=== PATIENT | female | born 1940 | race Caucasian/White ===

== ENCOUNTER 2019-04-09 01:06 | Emergency (ER) | payer OTHER, MEDICARE ==
[2019-04-09 01:13] VITALS: BP 145/76; PULSE 62; TEMP 98; BMI 21.4
[2019-04-09] MEDS ORDERED: morphine CARPU-JECT 4 MG/1 ML DISP.SYRIN IVPUSH ONE (01:27)
[2019-04-09] MEDS ORDERED: ONDANSETRON 4 MG/2 ML VIAL IVPB ONE (01:27)
[2019-04-09] MEDS ORDERED: SODIUM CHLORIDE 1,000 ML IV ONE (01:27)
--- NOTE | 2019-04-09 01:28 | PDOC ---
History of Present Illness - General Chief Complaint: Pain Stated Complaint: RIGHT FLANK PAIN Time Seen by Provider: 04/09/19 01:26 History Source: Patient Exam Limitations: No Limitations - History of Present Illness Initial Comments: 04/09/19 01:41 This is a 78-year-old female who comes in complaining of acute onset prior to arrival of right flank pain radiating to her right ear groin area. Patient had a similar episode approximately one month ago that resolved on its own. Patient said otherwise she denies any history of any stones. Patient said this episode was associated with nausea and vomiting. Patient here in the emergency room is very uncomfortable patient denies any fevers, chills, frequency or dysuria. Allergies: as per nursing notes Past Medical History: none Social history: Lives with family. No smoking. No alcohol. No illicit drugs. Surgical history: None General: No fevers or chills, no weakness, no weight loss HEENT: No change in vision. No sore throat,. No ear pain CardioVascular: no chest discomfort. No shortness of breath Respiratory:No cough, or wheezing. Gastrointestinal: no nausea, vomiting, diarrhea or constipation, No rectal bleeding Genitourinary: No dysuria, hematuria, or frequency Musculoskeletal: No joint or muscle pain or swelling Neurologic: No headache, vertigo, dizziness or loss of consciousness Psychiatric: nor depression Skin: No rashes or easy bruising Endocrine: no increased thirst or abnormal weight change Allergic: no skin or latex allergy All other systems reviewed and normal Exam: General: Well-nourished well-developed individual, no acute distress HEENT: Throat: Normal, tonsils normal, no erythema or exudate Neck: Supple, no meningeal signs, no lymphadenopathy Eyes::Pupils equal reactive and round, extraocular motion intact Chest: Nontender to palpation Cardiac: S1-S2 normal, regular rate and rhythm, no murmurs rubs or gallops Respiratory: Lungs clear to auscultation bilateral Abdomen: Soft, nondistended, normal bowel sounds, there is tenderness on palpation right lower quadrant no guarding or rebound Back/Flank: There is right CVA right flank tenderness on percussion and palpation Extremities: Warm, dry, no cyanosis, clubbing, or edema Skin: No rashes Neuro: Alert and oriented x3, CN II - XII intact, nonfocal exam with normal strength, normal sensation, normal reflexes, normal gait, Psych: Normal mood and affect Assessment and plan: This is 78-year-old female with right flank pain radiating to her right groin. The patient most likely has a kidney stone. Patient will be given morphine, IV fluids, Zofran and workup initiated including CBC, comp, CAT scan, UA 04/09/19 03:25 CAT scan does show a large 13 x 9 mm stone at the right UPJ. With some obstruction. Patient's renal function shows a creatinine of 0.7. Patient given prescriptions for Percocet and Zofran and told to stay well- hydrated and follow-up with a urologist on Thursday. Patient discharged home. Past History - Past Medical History Allergies/Adverse Reactions: Allergies Allergy/AdvReac Type Severity Reaction Status Date / Time No Known Allergies Allergy Verified 04/09/19 01:10 Home Medications: Ambulatory Orders Ondansetron [Zofran *Odt*] 4 mg SL QID PRN #21 od.tablet 04/09/19 Oxycodone HCl/Acetaminophen [Percocet 5-325 mg Tablet] 1 - 2 tab PO Q4H #20 tablet MDD 8 04/09/19 COPD: No Other medical history: Dystonia - Suicide/Smoking/Psychosocial Hx Smoking History: Never smoked Have you smoked in the past 12 months: No Information on smoking cessation initiated: No Hx Alcohol Use: No Drug/Substance Use Hx: No *Physical Exam - Vital Signs Last Vital Signs Temp Pulse Resp BP Pulse Ox 98.0 F 62 18 145/76 100 04/09/19 01:10 04/09/19 01:10 04/09/19 01:10 04/09/19 01:10 04/09/19 01:10 ED Treatment Course - LABORATORY CBC & Chemistry Diagram: 04/09/19 01:50 04/09/19 01:50 *DC/Admit/Observation/Transfer Diagnosis at time of Disposition: Renal colic on right side - Discharge Dispostion Disposition: HOME Decision to Admit order: No - Prescriptions Prescriptions: Oxycodone HCl/Acetaminophen [Percocet 5-325 mg Tablet] 1 - 2 tab PO Q4H #20 tablet MDD 8 - Referrals - Patient Instructions Printed Discharge Instructions: DI for Prescription Opioid Use Additional Instructions: For the pain take naproxen 1 tablet twice a day. In addition to the naproxen you can take Percocet one or 2 tablets every 4-6 hours as needed. For nausea take Zofran 1 tablet and that it dissolve under your tongue as often as every 6 hours Get an appointment with a urologist or as early next week as possible. Return to the emergency department immediately with ANY new, persistent or worsening symptoms. Continue any medications as previously prescribed by your physician. You should follow up with your primary doctor as soon as possible regarding today's emergency department visit. . Please make sure your doctor reviews the results of your emergency evaluation. Thank you for coming to the Emergency Department today for your care. It was a pleasure to see you today. Please note that your evaluation is INCOMPLETE until you follow-up with your doctor. . - Post Discharge Activity
[2019-04-09] MEDS ORDERED: ONDANSETRON 4 MG/2 ML VIAL ONE (01:41)
[2019-04-09] MEDS ORDERED: morphine SULFATE 4 MG/ML VIAL ONE ×3 (01:41)
[2019-04-09] MEDS ORDERED: KETOROLAC TROMETHAMINE 30 MG/1 ML VIAL IVPUSH ONE (01:55)
[2019-04-09] MEDS ORDERED: KETOROLAC TROMETHAMINE 30 MG/1 ML VIAL ONE (01:56)
[2019-04-09 02:29] LABS: BASO % 1.1 % (0-2.0); EOS % 3.5 % (0-4.5); HEMATOCRIT 40.8 % (32.4-45.2); HEMOGLOBIN 13.5 GM/dL (10.7-15.3); LYMPH % 14.1 % (8-40); MCH 31.6 pg (25.7-33.7); MCHC 33.1 g/dl (32.0-36.0); MEAN CELL VOLUME 95.5 fl (80-96); MEAN PLT VOLUME 9.6 fl (7.5-11.1); MONO % 7.3 % (3.8-10.2); PLATELET COUNT 331 K/MM3 (134-434); RBC 4.27 M/mm3 (3.60-5.2); RDW 13.8 % (11.6-15.6); WHITE BLOOD COUNT 10.8 K/mm3 (4.0-10.0)
[2019-04-09 03:06] LABS: ALBUMIN 4.1 g/dl (3.4-5.0); BILIRUBIN,TOTAL 0.5 mg/dL (0.2-1); CALCIUM 11.7 mg/dL (8.5-10.1); CREATININE 0.8 mg/dL (0.55-1.3); POTASSIUM 4.9 mmol/L (3.5-5.1); TOT PROT 8.2 g/dl (6.4-8.2)
[2019-04-09] MEDS ORDERED: ONDANSETRON 8 MG TABLET (FP) PO ONE (03:24)
[2019-04-09] MEDS ORDERED: ONDANSETRON 4 MG TABLET PO ONE (03:38)
== END 2019-04-09 03:52 | disposition home or self-care (01) ==
LOC: FER 01:06
PROC: 3E0333Z Introduction of Anti-inflammatory into Peripheral Vein, Percutaneous Approach (ICD-10-PCS; principal; 2019-04-09)
PROC: 3E033NZ Introduction of Analgesics, Hypnotics, Sedatives into Peripheral Vein, Percutaneous Approach (ICD-10-PCS; 2019-04-09)
PROC: 3E033GC Introduction of Other Therapeutic Substance into Peripheral Vein, Percutaneous Approach (ICD-10-PCS; 2019-04-09)
PROC: 3E0337Z Introduction of Electrolytic and Water Balance Substance into Peripheral Vein, Percutaneous Approach (ICD-10-PCS; 2019-04-09)
DX: N20.0 Calculus of kidney (principal)
CPT/HCPCS: 36415; 74176-TC; 80053; 85025; 99284-25; J7030

== ENCOUNTER 2019-04-13 20:12 | Emergency (ER) | payer OTHER, MEDICARE ==
[2019-04-13 20:17] VITALS: PULSE 74; TEMP 98.3; BMI 21.7
[2019-04-13 21:09] LABS: BASO % 0.9 % (0-2.0); HEMOGLOBIN 12.2 GM/dl (10.7-15.3); LYMPH % 15.2 % (8-40); MCH 32.5 pg (25.7-33.7); MCHC 33.8 g/dl (32.0-36.0); MEAN CELL VOLUME 96.2 fl (80-96); MEAN PLT VOLUME 8.7 fl (7.5-11.1); MONO % 9.4 % (3.8-10.2); NEUT % 68.5 % (42.8-82.8); PLATELET COUNT 259 K/MM3 (134-434); RBC 3.75 M/mm3 (3.60-5.2); RDW 13.1 % (11.6-15.6)
[2019-04-13 21:14] LABS: ALBUMIN 3.8 g/dl (3.4-5.0); BILIRUBIN,TOTAL 0.7 mg/dl (0.2-1); CALCIUM 9.7 mg/dl (8.5-10); CREATININE 0.7 mg/dl (0.55-1.3); POTASSIUM 4.1 mmol/L (3.5-5.1)
[2019-04-13] MEDS ORDERED: SODIUM CHLORIDE FOR INHALATION 3 ML VIAL.NEB IH ONE (21:51)
--- NOTE | 2019-04-13 22:08 | PDOC ---
Documentation entered by Malina Martines SCRIBE, acting as scribe for Ken Otero MD. Ken Otero MD: This documentation has been prepared by the Conrad brock Sammi, SCRIBE, under my direction and personally reviewed by me in its entirety. I confirm that the documentation accurately reflects all work, treatment, procedures, and medical decision making performed by me. History of Present Illness - General Chief Complaint: Blood Pressure Problem Stated Complaint: "MY PRESSURE IS HIGH" Time Seen by Provider: 04/13/19 20:13 - History of Present Illness Initial Comments: 04/13/19 20:53 The patient is a 78 year old female who presents to the emergency department for evaluation of swelling of her ankles and high blood pressure. The patient was seen here last week for a kidney stone, for which she was prescribed meloxicam and flomax. Pt states that since she started taking those medications , she has noticed that her blood pressure has been elevated, as high as 180 systolic, and she also has been experiencing swelling of both feet. She also endorses some chest "congestion" and cough that is worse with lying flat. She attributes it to post-nasal drip, which may be 2/2 allergies. Patient states when she woke up this morning her blood pressure was 182/110, so she took 20mg of her husbands lisinopril. Denies chest pain, shortness of breath, headache and dizziness. Denies fever, chills, nausea, vomiting, diarrhea and constipation. Denies dysuria, frequency, urgency and hematuria. Medical history: dystonia, prolapse mitral valve Allergies: codeine, sulfa Past History - Past Medical History Allergies/Adverse Reactions: Allergies Allergy/AdvReac Type Severity Reaction Status Date / Time Sulfa (Sulfonamide Allergy Verified 04/13/19 20:17 Antibiotics) Home Medications: Ambulatory Orders Levothyroxine Sodium [Synthroid] 1 mg PO DAILY 04/13/19 COPD: No - Suicide/Smoking/Psychosocial Hx Smoking History: Never smoked Have you smoked in the past 12 months: No Hx Alcohol Use: No Drug/Substance Use Hx: No Review of Systems - Review of Systems Comments:: 04/13/19 20:53 GENERAL/CONSTITUTIONAL: No fever or chills. No weakness. HEAD, EYES, EARS, NOSE AND THROAT: No change in vision. No ear pain or discharge. No sore throat. CARDIOVASCULAR:(+)high blood pressure. (+)chest congestion. no loss of consciousness RESPIRATORY: (+)cough. No wheezing, or hemoptysis. GASTROINTESTINAL: No nausea, vomiting, diarrhea or constipation. GENITOURINARY: No dysuria, frequency, or change in urination. MUSCULOSKELETAL: (+) ankle edema. No neck or back pain. SKIN: No rash NEUROLOGIC: No vertigo, no change in strength/sensation. *Physical Exam - Vital Signs Last Vital Signs Temp Pulse Resp BP Pulse Ox 98.3 F 74 14 143/84 99 04/13/19 20:15 04/13/19 20:15 04/13/19 20:15 04/13/19 21:46 04/13/19 20:15 - Physical Exam Comments: 04/13/19 22:04 "GENERAL: Awake, alert, and fully oriented, in no acute distress. HEAD: No signs of trauma EYES: PERRLA, EOMI, sclera anicteric, conjunctiva clear ENT: Auricles normal inspection, hearing grossly normal, nares patent, oropharynx clear without exudates. Moist mucosa NECK: Nontender, no stepoffs, Normal ROM, supple, no lymphadenopathy, JVD, or masses LUNGS: Breath sounds equal, clear to auscultation bilaterally. No wheezes, and no crackles HEART: Regular rate and rhythm, normal S1 and S2, no murmurs, rubs or gallops ABDOMEN: Soft, nontender, normoactive bowel sounds. No guarding, no rebound. No masses EXTREMITIES: +1 PE of both ankles, No clubbing or cyanosis. No cords, erythema, or tenderness NEUROLOGICAL: Cranial nerves II through XII intact. 5/5 strength and sensation in all extremities, Normal speech, normal gait, normal cerebellar function SKIN: Warm, Dry, normal turgor, no rashes or lesions noted. Heart Score/ECG Review - ECG Impressions Comment:: 04/13/19 22:05 NSR, no CHIOMA/STDs, T wave flattening in I and aVL, 1st degree AV block, rate 70 ED Treatment Course - LABORATORY CBC & Chemistry Diagram: 04/13/19 20:50 04/13/19 20:50 - ADDITIONAL ORDERS Additional order review: Laboratory Results 04/13/19 04/13/19 20:50 20:50 Sodium 139 Potassium 4.1 Chloride 104 Carbon Dioxide 28 Anion Gap 7 L BUN 18.0 Creatinine 0.7 Est GFR (CKD-EPI)AfAm 97.54 Est GFR (CKD-EPI)NonAf 84.16 Random Glucose 105 Calcium 9.7 Total Bilirubin 0.7 AST 20 ALT 20 Alkaline Phosphatase 51 Creatine Kinase 66 Troponin I < 0.03 Total Protein 7.0 Albumin 3.8 04/13/19 20:50 RBC 3.75 MCV 96.2 H MCHC 33.8 RDW 13.1 MPV 8.7 Neutrophils % 68.5 Lymphocytes % 15.2 Monocytes % 9.4 Eosinophils % 6.0 H Basophils % 0.9 - RADIOLOGY Radiology Studies Ordered: Category Date Time Status CHEST PA & LAT [RAD] Stat Radiology 04/13/19 20:37 Taken - Medications Given in the ED: ED Medications Discontinued Medications Generic Name Dose Route Start Last Admin Trade Name Freq PRN Reason Stop Dose Admin Sodium Chloride 3 ml 04/13/19 21:51 04/13/19 21:57 Normal Saline For Inhalation - IH 04/13/19 21:52 3 ml ONCE ONE Administration Medical Decision Making - Medical Decision Making 04/13/19 22:05 78 F with HTN, cough, bilateral ankle edema. Will evaluate for CHF, though pt has clear lungs on exam. Pt also recently started on meloxicam for kidney stones. Will check renal function. Pt's cough likely 2/2 post-nasal drip, no rales on exam. - Labs, trop, BNP - CXR - Saline neb 04/13/19 22:08 Labs wnl renal function normal Trop and BNP both negative CXR clear Pt is well appearing, with normal vitals. Clinically stable for DC at this time. I discussed the physical exam findings, ancillary test results and final diagnoses with the patient. I answered all of the patient's questions. The patient was satisfied with the care received and felt comfortable with the discharge plan and treatment plan. The patient agrees to follow up with the primary care physician within 24-72 hours. *DC/Admit/Observation/Transfer Diagnosis at time of Disposition: Ankle edema, Cough, HTN (hypertension) - Discharge Dispostion Disposition: HOME Condition at time of disposition: Good - Referrals - Patient Instructions Printed Discharge Instructions: DI for High Blood Pressure, DI for Peripheral Edema -- Bilateral Additional Instructions: Please follow up with your primary doctor within 1 week for further evaluation of your blood pressure and ankle swelling. You should also see a home health travel pt, as you may need to be started on a water pill or have an ultrasound of your heart. Stop taking the meloxicam, as your symptoms may be related to this medication. If you experience any chest pain, shortness of breath, worsening swelling of your legs, or any other concerning symptoms, return to the ER immediately. - Post Discharge Activity - Attestations Physician Attestion: 04/13/19 22:11 I, Dr. Ken Otero MD, attest that this document has been prepared under my direction and personally reviewed by me in its entirety. I further attest, that it accurately reflects all work, treatment, procedures and medical decision -making performed by me.
[2019-04-13 22:19] VITALS: BP 137/80
--- NOTE | 2019-04-14 15:31 | EKG ---
Test Reason : Blood Pressure : / mmHG Vent. Rate : 070 BPM Atrial Rate : 070 BPM P-R Int : 266 ms QRS Dur : 098 ms QT Int : 408 ms P-R-T Axes : 062 -25 085 degrees QTc Int : 440 ms SINUS RHYTHM WITH 1ST DEGREE A-V BLOCK POSSIBLE LEFT ATRIAL ENLARGEMENT CANNOT RULE OUT ANTERIOR INFARCT , AGE UNDETERMINED ABNORMAL ECG NO PREVIOUS ECGS AVAILABLE Confirmed by FRANSISCO GILLESPIE MD ([id number]) on 04/14/2019 3:30:48 PM Referred By: [place] Confirmed By:FRANSISCO GILLESPIE MD
== END 2019-04-13 22:27 | disposition home or self-care (01) ==
LOC: FER 20:12
PROC: 3E0337Z Introduction of Electrolytic and Water Balance Substance into Peripheral Vein, Percutaneous Approach (ICD-10-PCS; principal; 2019-04-13)
DX: I10 Essential (primary) hypertension (principal); M79.89 Other specified soft tissue disorders; R05 Cough
CPT/HCPCS: 36415; 71046-TC-FY; 80053; 82550; 83880; 84484; 85025; 93005; 99284-25

== ENCOUNTER 2021-11-22 15:58 | Emergency (ER) | payer OTHER, MEDICARE ==
[2021-11-22 16:24] VITALS: BP 148/68; PULSE 94; TEMP 98.5; BMI 20.9
[2021-11-22 17:11] LABS: EPITHELIAL CELLS RARE /hpf
[2021-11-22 18:14] LABS: HEMATOCRIT 38.6 % (32.4-45.2); HEMOGLOBIN 13.5 G/dL (10.7-15.3); INR 1.07 (0.83-1.09); MCH 32.7 pg (25.7-33.7); MCHC 34.9 g/dl (32.0-36.0); MEAN CELL VOLUME 93.6 fl (80-96); MEAN PLT VOLUME 8.8 fl (7.5-11.1); PLATELET COUNT 292.5 10^3/uL (134-434); PROTHROMBIN TIME (PATIENT) 12.3 SEC (9.7-13.0); RBC 4.12 10^6/uL (3.60-5.2); RDW 14.3 % (11.6-15.6); WHITE BLOOD COUNT 8.1 10^3/uL (4.0-10.8)
[2021-11-22 18:19] LABS: ALBUMIN 3.5 g/dl (3.4-5.0); BILIRUBIN,TOTAL 0.7 mg/dl (0.2-1); CALCIUM 10.3 mg/dl (8.5-10); CREATININE 0.8 mg/dl (0.55-1.3); TOT PROT 6.8 g/dl (6.4-8.2)
== END 2021-11-22 19:05 | disposition home or self-care (01) ==
LOC: FER 15:58
DX: R31.9 Hematuria, unspecified (principal)
CPT/HCPCS: 36415; 80053; 81003; 81015; 85025; 85610; 86850; 86900; 86901; 87086; 99283-25

== ENCOUNTER 2022-12-11 13:50 | Emergency (ER) | payer OTHER, MEDICARE ==
[2022-12-11 14:14] VITALS: BP 157/96; PULSE 88; RESP 16; TEMP 99.3; BMI 20.7
== END 2022-12-11 15:06 | disposition home or self-care (01) ==
LOC: FER 13:50
DX: T17.920A Food in respiratory tract, part unspecified causing asphyxiation, initial encounter (principal); R49.0 Dysphonia; R51.9 Headache, unspecified
CPT/HCPCS: 71046-TC-FY; 99283-25

== ENCOUNTER 2024-10-27 17:03 | Emergency (ER) | payer OTHER, MEDICARE ==
[2024-10-27 17:18] VITALS: BP 164/81; PULSE 69; RESP 18; TEMP 97.3; BMI 21.3
[2024-10-27] MEDS ORDERED: TAMSULOSIN HCL 0.4 MG CAP ONE (17:19)
[2024-10-27] MEDS ORDERED: ACETAMINOPHEN 500 MG TABLET (FP) ONE (17:19)
[2024-10-27] MEDS ORDERED: KETOROLAC TROMETHAMINE 15 MG/ML VIAL ONE (17:20)
[2024-10-27] MEDS ORDERED: ONDANSETRON 4 MG/2 ML VIAL ONE (17:26)
[2024-10-27] MEDS ORDERED: ACETAMINOPHEN INJECTION 100 ML ONE (17:26)
[2024-10-27] MEDS: SODIUM CHLORIDE 0.9% 500 ML INFUS.BAG IV ONE (17:34)
[2024-10-27] MEDS: TAMSULOSIN HCL 0.4 MG CAP PO ONE (17:35)
[2024-10-27] MEDS: KETOROLAC TROMETHAMINE 15 MG/ML VIAL IVPUSH ONE (17:36)
[2024-10-27] MEDS: ACETAMINOPHEN 1000 MG/100 ML BAG IVPB ONE (17:37)
[2024-10-27] MEDS: ONDANSETRON 4 MG/2 ML VIAL IVPUSH ONE (17:37)
[2024-10-27 17:45] LABS: HEMOGLOBIN 13.5 g/dL (11.2-15.7); MCHC 32.9 g/dl (32.2-35.5); MEAN CELL VOLUME 96.9 fl (79.4-94.8); MEAN PLT VOLUME 10.9 fl (9.4-12.3); PLATELET COUNT # 294 x10^3/uL (182-369); RDW 12.9 % (12.5-17.0)
[2024-10-27 18:00] LABS: ALBUMIN 3.9 g/dl (3.4-5.0); BILIRUBIN,TOTAL 0.8 mg/dl (0.2-1); CALCIUM 10.5 mg/dl (8.5-10.1); CREATININE 0.9 mg/dl (0.6-1.3); POTASSIUM 4.4 mmol/L (3.5-5.1); TOT PROT 7.4 g/dl (6.4-8.2)
[2024-10-27] MEDS: ACETAMINOPHEN 500 MG TABLET (FP) PO ONE (18:03)
== END 2024-10-27 18:35 | disposition home or self-care (01) ==
LOC: FER 17:03
PROC: 3E033NZ Introduction of Analgesics, Hypnotics, Sedatives into Peripheral Vein, Percutaneous Approach (ICD-10-PCS; principal; 2024-10-27)
PROC: 3E0333Z Introduction of Anti-inflammatory into Peripheral Vein, Percutaneous Approach (ICD-10-PCS; 2024-10-27)
PROC: 3E033GC Introduction of Other Therapeutic Substance into Peripheral Vein, Percutaneous Approach (ICD-10-PCS; 2024-10-27)
DX: N23 Unspecified renal colic (principal); R11.0 Nausea
CPT/HCPCS: 36415; 80053; 85027; 99284-25; J0131